=== PATIENT | female | born 1970 | race Caucasian/White ===

== ENCOUNTER 2019-12-27 17:00 | Outpatient (CLI) | payer OTHER, SELFPAY ==
--- NOTE | ~2019-12-27 | XR_ITS ---
EXAMINATION: XR chest 2V DATE: 12/27/2019 17:13 INDICATION: Dyspnea on exertion. TECHNIQUE: Frontal and lateral views of the chest were obtained. COMPARISON: Chest CT 05/24/2018 FINDINGS: The chest demonstrates clear lungs without pneumonia, pleural effusion, or pneumothorax. Th e heart size is normal. Surgical clips in the right upper quadrant are likely from cholecystectomy. IMPRESSION: 1. No acute cardiopulmonary disease. Reviewed, dictated and finalized at location A.
== END 2019-12-27 17:01 | disposition home or self-care (01) ==
LOC: ANHIMG 17:04
PROVIDERS: PCP Physician Assistant; Visit Provider Internal Medicine Cardiovascular Disease
DX: R06.09 Other forms of dyspnea (principal)
CPT/HCPCS: 71046

== ENCOUNTER 2020-05-16 17:40 | Outpatient (CLI) | payer OTHER, SELFPAY ==
--- NOTE | ~2020-05-16 | XR_ITS ---
EXAMINATION: XR shoulder LT min 2V DATE: 05/16/2020 18:05 INDICATION: Left shoulder pain TECHNIQUE: AP internally and externally rotated, AP oblique externally rotated and axillary views of the left shoulder were obtained. COMPARISON: None FINDINGS: Normal alignment. No fracture. Minimal glenohumeral and acromioclavicular osteoarthritis. Soft tissu es are unremarkable. Visualized portions of the left lung are clear. 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 Reviewed, dictated and finalized at location A. 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
== END 2020-05-16 17:41 | disposition home or self-care (01) ==
PROVIDERS: PCP Physician Assistant; Visit Provider Physician Assistant
DX: M25.512 Pain in left shoulder (principal)
CPT/HCPCS: 73030

== ENCOUNTER 2023-05-31 08:02 | Outpatient (CLI) | payer OTHER, SELFPAY ==
--- NOTE | ~2023-05-31 | CT_ITS ---
EXAMINATION: CT diagnostic chest wo con DATE: 05/31/2023 08:23 INDICATION: Bicuspid aortic valve TECHNIQUE: Computed tomography (CT) of the chest was performed without intravenous contrast. The dose -length product (DLP) was 292.06 mGy-cm. Automated exposure control and iterative reconstruction tech nique were employed. COMPARISON: 05/24/2018 FINDINGS: The lungs are free of acute opacities. No pleural effusion or pneumothorax. No pathological ly enlarged thoracic lymph nodes are identified. The heart size is normal. The mildly dilated ascendi ng aorta measures 3.9 x 3.7 cm at the level of the main pulmonary artery. Changes of cholecystectomy are noted. There is mild thoracic spondylosis. IMPRESSION: 1. Mildly dilated ascending aorta measuring up to 3.9 cm. Reviewed, dictated and finalized at location B. 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
== END 2023-05-31 08:03 | disposition home or self-care (01) ==
PROVIDERS: PCP Physician Assistant; Visit Provider Internal Medicine Cardiovascular Disease
DX: Q23.1 Congenital insufficiency of aortic valve (principal); I77.819 Aortic ectasia, unspecified site; I77.89 Other specified disorders of arteries and arterioles
CPT/HCPCS: 71250

== ENCOUNTER 2024-06-01 09:21 | Outpatient (CLI) | payer OTHER, SELFPAY ==
--- NOTE | ~2024-06-01 | CT_ITS ---
CT Scan of the Chest without Contrast: Clinical Indication: Ascending aorta Technique: Contiguous sections were acquired throughout the chest without intravenous contrast. Dose reduction technique was used on this scan by utilizing automated exposure control and iterative recon struction technique. The dose-length product (DLP) was 208.72 mGy-cm. COMPARISON: 05/31/2023 Findings: There is no evidence of any significant mediastinal, hilar or axillary lymphadenopathy. Ascending aor ta measures 4 cm in diameter. There is no evidence of pleural or pericardial effusion. The lungs are clear. No pulmonary nodules or infiltrates are noted. Images through the upper abdomen reveal no abnormalities. Impression: Clear lungs. Ascending aorta measures 4 cm in diameter. Reviewed, dictated and finalized at location . 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 Ascending aorta measures 4 cm in diameter.
== END 2024-06-01 09:22 | disposition home or self-care (01) ==
PROVIDERS: PCP Physician Assistant; Visit Provider Internal Medicine Cardiovascular Disease
DX: I77.89 Other specified disorders of arteries and arterioles (principal); Q23.1 Congenital insufficiency of aortic valve
CPT/HCPCS: 71250